=== PATIENT | female | born 1970 | race Hispanic/Latino ===

== ENCOUNTER 2018-06-29 21:45 | Emergency (ER) | payer MEDICAID ==
[2018-06-29 21:46] VITALS: BMI 26.9
[2018-06-29 21:50] VITALS: RESP 17; TEMP 97.2; O2SAT 99
--- NOTE | 2018-06-29 22:44 | ED PDOC ---
HPI: Psych/Substance Abuse Time Seen by Provider: 06/29/18 21:56 Chief Complaint (Nursing): Alcohol Ingestion Chief Complaint (Provider): Alcohol intoxiation ED Caveat: Intoxicated, Uncooperative Modifying Factor(s): Alcohol Additional Complaint(s): 47y/o female brought to ER by [facility] due to alcohol intoxication. Patient was laying on sidewalk with her head on someone else's stoop. She was recently discharged from [facility] at 8pm after being evaluated for alcohol intoxication. Patient is non-cooperative on arrival and is refusing to answer questions. HPI and ROS unavailable due to intoxication. NO reports of trauma. Patient not offering any complaints at this time. Past Medical History Reviewed: Historical Data, Nursing Documentation, Vital Signs Vital Signs: Last Vital Signs Temp 97.2 F L 06/29/18 21:47 Pulse 103 H 06/29/18 21:47 Resp 17 06/29/18 21:47 BP 120/85 06/29/18 21:47 Pulse Ox 99 06/29/18 21:47 - Medical History PMH: Depression - Family History Family History: States: Unknown Family Hx - Home Medications Home Medications: Ambulatory Orders Medication Instructions Recorded Nitrofurantoin Macrocrystal 100 mg PO BID 06/29/18 [Nitrofurantoin] - Allergies Allergies/Adverse Reactions: Allergies Allergy/AdvReac Type Severity Reaction Status Date / Time Unobtainable Allergy Verified 06/29/18 16:37 Review of Systems Review Of Systems: ROS cannot be obtained secondary to pt's inabilty to answer questions. (alcohol intoxication) Physical Exam - Reviewed Nursing Documentation Reviewed: Yes Vital Signs Reviewed: Yes - Physical Exam Comments: GENERAL APPEARANCE: Awake, in no distress, poor hygiene. (+) odor of alcohol SKIN: Warm, dry; (-) cyanosis ENMT: Mucous membranes moist. Airway patent: (-) stridor. NECK: Supple HEART AND CARDIOVASCULAR: (-) irregularity CHEST AND RESPIRATORY: (-) rales, (-) rhonchi, (-) wheezes; breath sounds equal. Respirations even and nonlabored. ABDOMEN: Soft, (-) distention, (-) tenderness, (-) guarding. NEURO AND PSYCH: Mental status as above. Affect: flat. (-) facial asymmetry - ECG O2 Sat by Pulse Oximetry: 99 (RA) Pulse Ox Interpretation: Normal Medical Decision Making Medical Decision Making: Impression: Alcohol intoxication Plan: * Alcohol serum * Glucose POC * Re-evaluation 5 Serum alcohol: 128 Accucheck: 137 0000 Patient sleeping comfortably, no acute distress. 0210 Repeat HR: 92 Patient now awake and oriented x3 in no acute distress. Gait steady in ED without assistance. Lungs clear to auscultation, cardiac RRR, abdomen soft, non- tender, repeat neuro exam shows no focal findings. VSS, stable for discharge. Lab/Diagnostic results d/w the patient in great detail. Diagnosis of alcohol intoxication d/w the patient. Based on history, exam and diagnostic results, plan will be for outpatient follow up. Patient instructed to follow-up with pmd / referral provided / the clinic in 1- 2 days without fail. Return to the emergency room at any time for any new or worsening symptoms. Patient states she fully agrees with and understands discharge instructions. States that she agrees with the plan and disposition. Verbalized and repeated discharge instructions and plan. I have given the patient opportunity to ask any additional questions. Scribe Attestation: Documented by Leta Simmons, acting as a scribe for VINNIE Vaughn. Provider Scribe Attestation: All medical record entries made by the Scribe were at my direction and personally dictated by me. I have reviewed the chart and agree that the record accurately reflects my personal performance of the history, physical exam, medical decision making, and the department course for this patient. I have also personally directed, reviewed, and agree with the discharge instructions and disposition. Disposition - Clinical Impression Clinical Impression: Alcohol abuse with intoxication - Patient ED Disposition Is Patient to be Admitted: No Counseled Patient/Family Regarding: Studies Performed, Diagnosis, Need For Followup - Disposition Referrals: [facility] [Outside] Disposition: Routine/Home Disposition Time: 02:10 Condition: STABLE Additional Instructions: The emergency medical care you received today was directed towards the acute presenting symptoms. If you were prescribed any medication, please fill it and give as directed. It may take several days for your symptoms to resolve. Return to the Emergency Department at any time if symptoms worsen, do not improve, or if any other problems arise. Please contact your doctor in 2 days for re-evaluation and follow up / or call one of the physicians/clinics you have been referred to that are listed on the Patient Visit Information form that is included in your discharge packet. Bring any paperwork you were given at discharge with you along with any medications to your follow up visit. Our treatment cannot replace ongoing medical care by a primary care provider (PCP) outside of the emergency department. Instructions: Alcohol Abuse and Alcoholism (DC), Effects of Alcohol on Your Health Forms: [employer] (Urdu) Print Language: VIETNAMESE - POA Present On Arrival: None Results - Lab Results Lab Results: 06/29/18 06/29/18 22:31 22:22 POC Glucose (mg/dL) 137 H Alcohol, Quantitative 128 H
[2018-06-30 02:19] VITALS: BP 128/77; PULSE 92
== END 2018-06-30 02:19 | disposition home or self-care (01) ==
LOC: H.ER 21:45
DX: F10.129 Alcohol abuse with intoxication, unspecified (principal); F32.9 Major depressive disorder, single episode, unspecified

== ENCOUNTER 2018-07-02 08:36 | Emergency (ER) | payer MEDICAID ==
[2018-07-02 08:41] VITALS: BMI 25.8
[2018-07-02 08:42] VITALS: RESP 20
[2018-07-02 10:57] LABS: BASO # 0.1 K/uL (0.0-0.2); BASO % 0.8 % (0.0-2.0); HEMOGLOBIN 10.3 g/dL (12.0-16.0); LYMPH # 1.9 K/uL (1.0-4.3); LYMPH % 18.9 % (20.0-40.0); MEAN CELL VOLUME 74.2 fl (81.0-99.0); MEAN CORPUSCULAR HEMOGLOBIN 22.8 pg (27.0-31.0); MEAN CORPUSCULAR HGB CONC 30.8 g/dL (33.0-37.0); MEAN PLATELET VOLUME 8.7 fl (7.2-11.7); MONO # 0.5 K/uL (0.0-0.8); MONO % 4.6 % (0.0-10.0); NEUT # 7.6 K/uL (1.8-7.0); NEUT % 75.7 % (50.0-75.0); NRBC % 0.1 % (0.0-0.0); RBC 4.51 Mil/uL (3.80-5.20); RED CELL DISTRIBUTION WIDTH 26.2 % (11.5-14.5); WHITE BLOOD COUNT 10.1 K/uL (4.8-10.8)
[2018-07-02 11:02] LABS: BLOOD UREA NITROGEN 12 mg/dl (7-17); CALCIUM 8.1 mg/dL (8.4-10.2); GFR NON-AFRICAN AMERICAN > 60
[2018-07-02 11:03] LABS: ACETAMINOPHEN < 10.0 ug/ml (10.0-30.0)
[2018-07-02 11:05] LABS: SQUAMOUS EPITHIAL 1 /hpf (0-5); URINE BACTERIA RARE (<OCC); URINE BILIRUBIN NEGATIVE (NEGATIVE); URINE BLOOD SMALL (NEGATIVE); URINE CLARITY CLEAR (Clear); URINE COLOR STRAW (YELLOW); URINE GLUCOSE (UA) NEG (Normal); URINE LEUKOCYTE ESTERASE NEG Leu/uL (Negative); URINE PROTEIN NEGATIVE (NEGATIVE); URINE UROBILINOGEN 0.2-1.0 mg/dL (0.2-1.0)
--- NOTE | 2018-07-02 11:10 | ED PDOC ---
HPI: Psych/Substance Abuse Time Seen by Provider: 07/02/18 08:54 Chief Complaint (Nursing): Psychiatric Evaluation Chief Complaint (Provider): Psychiatric Evaluation History Per: Patient, EMS History/Exam Limitations: no limitations Onset/Duration Of Symptoms: Hrs Current Symptoms Are (Timing): Still Present Additional Complaint(s): Gisele Villegas is a 47 year old female with a past medical history of depression who is presenting to the ED after friends called 911 s/p patient chugging a pint of vodka. Friends were concerned as patient apparently tried to stab herself with a knife. On evaluation, she admits that she is drunk today and admits that she is aware that her friends were concerned. Patient states that she denies any suicidal ideation or intention to harm herself. She is sleepy but easily arousable. Patient denies any pain, nausea, vomiting, or other discomfort. PMD: none provided Past Medical History Reviewed: Historical Data, Nursing Documentation, Vital Signs Vital Signs: Last Vital Signs Temp 98.7 F 07/02/18 08:42 Pulse 118 H 07/02/18 08:42 Resp 20 07/02/18 08:42 BP 121/84 07/02/18 08:42 Pulse Ox 98 07/02/18 08:44 - Medical History PMH: Depression Denies: Diabetes, Hepatitis, HIV, HTN, Seizures, Sexually Transmitted Disease - Surgical History Surgical History: No Surg Hx - Family History Family History: States: Unknown Family Hx - Social History Current smoker - smoking cessation education provided: Yes Alcohol: Social Drugs: Denies - Immunization History Hx Tetanus Toxoid Vaccination: No Hx Influenza Vaccination: No (Unobtainable) Hx Pneumococcal Vaccination: No (Unobtainable) - Allergies Allergies/Adverse Reactions: Allergies Allergy/AdvReac Type Severity Reaction Status Date / Time No Known Allergies Allergy Verified 07/02/18 09:07 Review of Systems ROS Statement: Except As Marked, All Systems Reviewed And Found Negative Gastrointestinal: Negative for: Nausea, Vomiting Psych: Negative for: Suicidal ideation (patient denies ) Physical Exam - Reviewed Nursing Documentation Reviewed: Yes Vital Signs Reviewed: Yes - Physical Exam Appears: Positive for: Non-toxic, No Acute Distress (slurred speech, lethargic) Head Exam: Positive for: ATRAUMATIC, NORMAL INSPECTION, NORMOCEPHALIC Skin: Positive for: Normal Color, Warm, Dry Eye Exam: Positive for: EOMI, Normal appearance, PERRL ENT: Positive for: Normal ENT Inspection Neck: Positive for: Normal, Painless ROM, Supple Cardiovascular/Chest: Positive for: Regular Rate, Rhythm. Negative for: Murmur Respiratory: Positive for: Normal Breath Sounds. Negative for: Respiratory Distress Gastrointestinal/Abdominal: Positive for: Normal Exam, Soft. Negative for: Tenderness Back: Positive for: Normal Inspection. Negative for: L CVA Tenderness, R CVA Tenderness, Vertebral Tenderness Extremity: Positive for: Normal ROM. Negative for: Calf Tenderness (no pain on calf squeeze), Deformity, Swelling Neurologic/Psych: Positive for: Alert, Oriented. Negative for: Motor/Sensory Deficits - Laboratory Results Result Diagrams: 07/02/18 10:30 07/02/18 10:30 - ECG O2 Sat by Pulse Oximetry: 98 (RA) Pulse Ox Interpretation: Normal Medical Decision Making Medical Decision Making: Time: 9:10 A/P: acute intoxication with possible suicidal ideation --Labs ordered including ETOH, drug level, salicylate, and acetaminophen --Crisis evaluation --Reassess when clinically sober 19:00 Transferred care over to Dr. Conklin pending [facility] evaluation. Scribe Attestation: Documented by Traci Rodriguez, acting as a scribe for Radha Jaeger MD. Provider Scribe Attestation: All medical record entries made by the Scribe were at my direction and personally dictated by me. I have reviewed the chart and agree that the record accurately reflects my personal performance of the history, physical exam, medical decision making, and the department course for this patient. I have also personally directed, reviewed, and agree with the discharge instructions and disposition. 1500 Crisis team and RN spoke with family members who have expressed serious concerns of pt having strange and dangerous behavior to herself and others. Pt with tachycardia. Given 2 L of IV fluids and Valium PO for prevention of ETOH withdrawl. ONce medically cleared, pt to be admitted for involuntary psych. 1600 Pt with improved vitals. Pt comfortable and denies pain or discomfort. Workup o therwise normal. Pt medically optimized for psychiatric evaluation. Recommend Librium PRN for signs of alcohol withdrawal. Crisis team aware of pt's medical clearance. 1999 Pt signed out to Dr. Conklin pending [facility] psychiatric evaluation for possible involuntary admission. Disposition - Clinical Impression Clinical Impression: Alcohol intoxication, Alcohol use disorder - Disposition Referrals: Alcoholics Anonymous [Outside] [facility] [Outside] Disposition: Transfer of Care (Dr. Conklin) Disposition Time: 20:00 Condition: STABLE Instructions: Alcohol Abuse and Alcoholism (DC) Forms: [employer] (Danish)
[2018-07-02 11:14] LABS: BARBITURATES, UR NEGATIVE (NEGATIVE); BENZODIAZEPINES, UR POSITIVE (NEGATIVE); OPIATES, UR NEGATIVE (NEGATIVE); PHENCYCLIDINE, UR NEGATIVE (NEGATIVE)
[2018-07-02] MEDS ORDERED: Sodium Chloride 0.9% 1,000 ML IV STA ×2 (14:17)
[2018-07-02] MEDS ORDERED: diaZEpam 10 mg/2 ml Inj IVP STA (14:49)
--- NOTE | 2018-07-02 20:26 | CARD ---
APPROVED REPORT Date of service: 07/02/2018 EKG Measurement Heart [id number] <Conclusion> Sinus tachycardia Otherwise normal ECG
--- NOTE | 2018-07-02 21:45 | ED PDOC ---
- Laboratory Results Result Diagrams: 07/02/18 10:30 07/02/18 10:30 - ECG O2 Sat by Pulse Oximetry: 98 (RA) Pulse Ox Interpretation: Normal Medical Decision Making Medical Decision MakinPM Patient endorsed to me by Dr. Jaeger pending [facility] eval 9PM Patient was cleared by Dr. Arthur for [facility] [place], stating patient is not commitable Dr. Granados clears patient for discharge with diagnosis of alcohol use disorder Patient is awake, alert, steady gait Disposition - Clinical Impression Clinical Impression: Alcohol intoxication, Alcohol use disorder - POA Present On Arrival: None - Disposition Referrals: Alcoholics Anonymous [Outside] [facility] [Outside] Disposition: Routine/Home Disposition Time: 21:45 Condition: STABLE Instructions: Alcohol Abuse and Alcoholism (DC) Forms: [employer] (Finnish)
[2018-07-03 01:09] VITALS: BP 124/74; PULSE 81; TEMP 98.2; O2SAT 99
[2018-07-03 09:34] LABS: SALICYLATE < 1.0 mg/dl
== END 2018-07-02 21:50 | disposition home or self-care (01) ==
LOC: H.ER 08:36
DX: F10.129 Alcohol abuse with intoxication, unspecified (principal); Y90.6 Blood alcohol level of 120-199 mg/100 ml; F17.200 Nicotine dependence, unspecified, uncomplicated; Z86.59 Personal history of other mental and behavioral disorders
CPT/HCPCS: 80048; 80320; 80324; 80329; 80345; 80346; 80349; 80353; 80358; 80361; 81003; 81025; 83992; 85025; 93005; 96360; 96361; 96372; 99285; J1630; J2060; J7030

== ENCOUNTER 2018-07-07 11:03 | Inpatient (IN) | payer MEDICAID ==
[2018-07-07 11:03] VITALS: BMI 25.8
--- NOTE | 2018-07-07 12:23 | ED PDOC ---
HPI: Psych/Substance Abuse Time Seen by Provider: 07/07/18 11:36 Chief Complaint (Nursing): Alcohol Ingestion Chief Complaint (Provider): linus been drinking ED Caveat: Intoxicated History Per: Patient History/Exam Limitations: no limitations Involuntary Hold By: Emergency Physician Additional Complaint(s): 47yo female arrives via EMS per report drinking alcohol and rubbing alcohol at home. patient admits to depression, denies suicidal thoughts. Denies falls, current pain or trauma. Past Medical History Reviewed: Historical Data, Nursing Documentation, Vital Signs Vital Signs: Last Vital Signs Temp 97.0 F L 07/07/18 11:23 Pulse 98 H 07/07/18 11:23 Resp 18 07/07/18 11:23 BP 125/85 07/07/18 11:23 Pulse Ox 99 07/07/18 11:23 - Medical History PMH: Depression Denies: Diabetes, Hepatitis, HIV, HTN, Seizures, Sexually Transmitted Disease - Family History Family History: States: Unknown Family Hx - Living Arrangements Living Arrangements: With Family - Social History Alcohol: > 2 Drinks/Day Drugs: Denies - Immunization History Hx Tetanus Toxoid Vaccination: No Hx Influenza Vaccination: No (Unobtainable) Hx Pneumococcal Vaccination: No (Unobtainable) - Allergies Allergies/Adverse Reactions: Allergies Allergy/AdvReac Type Severity Reaction Status Date / Time No Known Allergies Allergy Verified 07/02/18 09:07 Review of Systems Review Of Systems: ROS cannot be obtained secondary to pt's inabilty to answer questions. Physical Exam - Reviewed Nursing Documentation Reviewed: Yes Vital Signs Reviewed: Yes - Physical Exam Appears: Positive for: Non-toxic (intoxicated) Head Exam: Positive for: ATRAUMATIC, NORMAL INSPECTION, NORMOCEPHALIC Skin: Positive for: Normal Color, Warm, DRY Eye Exam: Positive for: EOMI, Normal appearance, PERRL ENT: Positive for: Normal ENT Inspection Neck: Positive for: Normal, Painless ROM Cardiovascular/Chest: Positive for: Regular Rate, Rhythm Respiratory: Positive for: CNT, Normal Breath Sounds Pulses-Radial (L): 3+/4+ Pulses-Radial (R): 3+/4+ Gastrointestinal/Abdominal: Positive for: Soft. Negative for: Tenderness Back: Positive for: Normal Inspection Extremity: Positive for: Normal ROM Neurologic/Psych: Positive for: Alert, soft sugar cutter II-XII, Mood/Affect (anxious intoxicated appearing), Other. Negative for: Motor/Sensory Deficits, Aphasia - Laboratory Results Result Diagrams: 07/07/18 12:20 07/07/18 12:20 - ECG O2 Sat by Pulse Oximetry: 99 Medical Decision Making Medical Decision Making: patient physically and verbally agitated in ED, attempting to strike staff, required relief of agitation with medication and physical restraints for staff and patient safety. labs reviewed, elevated etoh 368 monitored throughout the day with frequent re-evaluation. approx 1800 required librium for mild withdrawal symptoms. RN discussed w poison control center, supportive care recommended. medically stable for crisis evaluation 740p admit psychiatry per reed worker, dr robb pizarro-trupti 8p denies headache, nausea or hallucinatory thoughts. HR 98. Speech clear. She denies drinking everyday, has been binging last several days. Denies hx withdrawal seizures. CIWA score 10. remains stable for psych admit. Disposition - Clinical Impression Clinical Impression: Alcohol abuse, Depressed - Patient ED Disposition Is Patient to be Admitted: Yes Counseled Patient/Family Regarding: Studies Performed - Disposition Disposition Time: 20:07 Condition: FAIR Instructions: Depression Forms: [employer] (Cook Islander)
[2018-07-07 12:30] LABS: BASO # 0.1 K/uL (0.0-0.2); BASO % 0.7 % (0.0-2.0); EOS % 0.2 % (0.0-4.0); HEMOGLOBIN 10.9 g/dL (12.0-16.0); LYMPH # 1.9 K/uL (1.0-4.3); LYMPH % 19.8 % (20.0-40.0); MEAN CELL VOLUME 74.7 fl (81.0-99.0); MEAN CORPUSCULAR HEMOGLOBIN 22.5 pg (27.0-31.0); MEAN CORPUSCULAR HGB CONC 30.2 g/dL (33.0-37.0); MEAN PLATELET VOLUME 8.4 fl (7.2-11.7); MONO # 0.3 K/uL (0.0-0.8); MONO % 3.4 % (0.0-10.0); NEUT # 7.4 K/uL (1.8-7.0); NEUT % 75.9 % (50.0-75.0); RBC 4.83 Mil/uL (3.80-5.20); RED CELL DISTRIBUTION WIDTH 26.1 % (11.5-14.5); WHITE BLOOD COUNT 9.7 K/uL (4.8-10.8)
[2018-07-07 12:38] LABS: INR 0.9
[2018-07-07 12:39] LABS: SQUAMOUS EPITHIAL < 1 /hpf (0-5); URINE BACTERIA RARE (<OCC); URINE BILIRUBIN NEGATIVE (NEGATIVE); URINE BLOOD SMALL (NEGATIVE); URINE CLARITY CLEAR (Clear); URINE COLOR COLORLESS (YELLOW); URINE GLUCOSE (UA) NEG (Normal); URINE LEUKOCYTE ESTERASE NEG Leu/uL (Negative); URINE PROTEIN NEGATIVE (NEGATIVE); URINE UROBILINOGEN 0.2-1.0 mg/dL (0.2-1.0)
[2018-07-07 12:41] LABS: PARTIAL THROMBOPLASTIN TIME 23.9 Seconds (25.6-37.1)
[2018-07-07 12:58] LABS: ALB/GLOB RATIO 1.3 (1.0-2.1); ALT/SGPT 37 U/L (9-52); AST/SGOT 46 U/L (14-36)
[2018-07-07 13:00] LABS: BLOOD UREA NITROGEN 11 mg/dl (7-17); GFR NON-AFRICAN AMERICAN > 60; LIPASE 215 U/L (23-300)
[2018-07-07 13:17] LABS: ACETAMINOPHEN < 10.0 ug/ml (10.0-30.0); SALICYLATE < 1.0 mg/dl
[2018-07-07] MEDS ORDERED: Sodium Chloride 0.9% 1,000 ML IV STA (14:11)
[2018-07-07 14:44] VITALS: O2SAT 99
--- NOTE | 2018-07-07 15:20 | RAD ---
Date of service: 07/07/2018 HISTORY: etoh abuse COMPARISON: 09/12/2012. FINDINGS: LUNGS: No active pulmonary disease. PLEURA: No significant pleural effusion identified, no pneumothorax apparent. CARDIOVASCULAR: No atherosclerotic calcification present Normal. OSSEOUS STRUCTURES: No significant abnormalities. VISUALIZED UPPER ABDOMEN: Normal. OTHER FINDINGS: None. IMPRESSION: No active disease. No significant interval change compared to the prior examination(s).
--- NOTE | 2018-07-07 17:18 | CARD ---
APPROVED REPORT Date of service: 07/07/2018 EKG Measurement Heart [id number] <Conclusion> Normal sinus rhythm Prolonged QT Abnormal ECG
[2018-07-07] MEDS ORDERED: DiphenhydrAMINE 50 mg/ml Inj IM PRN (22:43)
[2018-07-07] MEDS ORDERED: Alum-Mag Hydrox-Simethicone Susp (30 mL) PO PRN (22:43)
[2018-07-07] MEDS ORDERED: Magnesium Hydroxide Susp 30 ml UD PO PRN (22:43)
[2018-07-07 23:00] LABS: BENZODIAZEPINES, UR NEGATIVE (NEGATIVE)
[2018-07-07 23:03] LABS: BARBITURATES, UR NEGATIVE (NEGATIVE); OPIATES, UR NEGATIVE (NEGATIVE); PHENCYCLIDINE, UR NEGATIVE (NEGATIVE)
--- NOTE | 2018-07-07 23:05 | PCM.BM ---
<Marcello Bunn - Last Filed: 07/07/18 23:03> Treatment Plan Problems - Problems identified on initial assessmt Hopelessness/Helplessness Date Initiated: 07/07/18 Time Initiated: 23:03 Assessment reference: NA Status: Active Altered Sleep Patterns Date Initiated: 07/07/18 Time Initiated: 23:03 Assessment reference: NA Status: Active Treatment assets and liabiliti Patient Assests: cooperative, ADL independent, negotiates basic needs, cognitively intact Patient Liabilities: financial problems, poor support system, relationship conflicts, substance abuse (Homelessness, Hx Psych Tx) - Milieu Protocol Maintain good personal hygiene: daily Encourage regular showers, daily Remind patient to perform daily oral care, daily Assist patient to perform ADL's Conduct patient checks and document Observation sheet: Q15 minutes Maintain personal safety: every shift Educate patient to report safety concerns to staff, every shift Monitor environment for contraband/sharps Medication safety: Monitor for expected outcome, potential side effects: every shift, Assess barriers to learning: every shift, Assess readiness for medication education: every shift <Sharda Herring - Last Filed: 07/09/18 17:03> Treatment assets and liabiliti Patient Liabilities: live alone (pt. currently homeless), other (alcohol abuse, severe) Family Contact Family involvement: Family/SO is involved Family contact: Family has been contacted by patient, Patient declines to allow family contact at present Family contact comment: Patient has declined to provide continuity writer to contact family despite encouragement/engagement. Fig [employer] Machine Operator to continue to to meet with patient and emphasize importance of involvement of pts primary support to assist with appropriate discharge planning. - Goals for Treatment Patient goals for treatment: Patient to continue stabilization on 3NP through medication management and group/supportive therapy to address sxs of depression, eliminate suicidal ideations and emphasizing severity of effects of ETOH abuse. Patient to be encouraged to attend groups regularly to promote self-awareness, sobriety, and improve insight, compliance, coping skills and self-esteem. Patient to be provided with referral for appropriate level of aftercare to reduce risk of future hospitalizations and ensure safety/maximum functioning in the community. Discharge/Continuing Care - Education Needs Education Needs: Patient Medication, Patient Diagnosis/Disease Process, Patient Coping Skills, Patient Anger Management skills, Patient Community resources, Patient Aftercare Safety Plan - Discharge Discharge Criteria: Tolerates medication w/o severe side effects, Free of Suicidal thoughts, Free of agitation, Normal sleep pattern, No longer exhibiting s/s of withdrawal Discharge to:: Nursing Home, Other (Inpatient Rehab vs. [facility]) - Treatment Team Participation Patient/Family/SO Statement: 07/09/18 17:05 Patient attended tx team this morning to discuss progress on 3NP and tx goal. Pt. presented as depression and anxious as exhibited by poor energy/motivation, feelings of hopelessness/helplessness and lability in mood. Pt. reported passive suicidal ideations without plan or intent and was able to contract for safety on 3NP. Pt. expressed frustration regarding sxs of withdrawal. Pt. reported restlessness, physical pain/discomfort and inability to sleep. Pt. demanded that Ativan be increased and Xanax added to medication regimen. Validation and emotional support provided. Tx teams commitment to aiding pt. through a safe withdrawal reiterated. Increase in Seroquel suggested. Extensive psychoeducation regarding risks of xanax use and higher dosages of current medications provided. Pt. became agitated and verbally threatening towards staff. Pt. slammed head on table, getting up abruptly and yelling I want to be transferred to [facility] now. Pt. not receptive to feedback. Pt. began to posture towards staff and required verbal de-escalation and was escorted out of tx team room but RN. Discussed with Family/SO: No Was Patient/Family/SO present at Treatment Team Meeting: Yes <Carmen Hyman - Last Filed: 07/12/18 08:50> Treatment Plan Problems - Problems identified on initial assessmt Hopelessness/Helplessness Date Initiated: 07/07/18 Time Initiated: 23:03 Assessment reference: NA Status: Active Altered Sleep Patterns Date Initiated: 07/07/18 Time Initiated: 23:03 Assessment reference: NA Status: Active Substance Abuse Date Initiated: 07/09/18 Time Initiated: 14:21 Assessment reference: NA Status: Active - Diagnosis (1) Alcohol abuse Status: Acute Interventions: motivational therapy 07/12/18 08:50
[2018-07-08 07:08] LABS: T4 5.03 ug/dl (5.5-11.0)
[2018-07-08] MEDS: Multivitamin With Minerals Tab PO SCH (10:55)
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
--- NOTE | 2018-07-08 13:29 | CP.PCM.CON ---
History of Present Illness - History of Present Illness History of Present Illness: 47 yo female with history of Bipolar DO and ETOH abuse admitted to Psyche unit because of suicidal ideation. Review of Systems - Review of Systems All systems: reviewed and no additional remarkable complaints except (aside from those mentioned above, 12 point system review were negative by me) Past Patient History - Tetanus Immunizations Tetanus Immunization: Unknown - Past Social History Smoking Status: Heavy Smoker > 10 Cigarettes Daily Chewing Tobacco Use: No Cigar Use: No Alcohol: > 2 Drinks/Day Drugs: Denies - CARDIAC Hx Cardiac Disorders: No Hx Hypertension: No - PULMONARY Hx Tuberculosis: No - NEUROLOGICAL HX Cerebrovascular Accident: No Hx Seizures: No - HEMATOLOGICAL/ONCOLOGICAL Hx Cancer: No Hx Human Immunodeficiency Virus (HIV): No - GENITOURINARY/GYNECOLOGICAL Hx Sexually Transmitted Disorders: No - PSYCHIATRIC Hx Depression: Yes Hx Substance Use: No - SURGICAL HISTORY Hx Surgeries: No Hx Gastric Bypass Surgery: Yes Other/Comment: Gastric by pass - ANESTHESIA Hx Anesthesia: Yes Hx Anesthesia Reactions: No Hx Malignant Hyperthermia: No Has any member of the family had a problem w/ anesthesia?: No Meds Allergies/Adverse Reactions: Allergies Allergy/AdvReac Type Severity Reaction Status Date / Time No Known Allergies Allergy Verified 07/02/18 09:07 - Medications Medications: Current Medications Acetaminophen (Tylenol 325mg Tab) 650 mg PO Q4 PRN PRN Reason: pain level 4-7 Al Hydrox/Mg Hydrox/Simethicone (Maalox Plus 30 Ml) 30 ml PO Q4 PRN PRN Reason: Dyspepsia Chlordiazepoxide (Librium) 50 mg PO Q8 [facility] Last Admin: 07/08/18 10:55 Dose: 50 mg Diphenhydramine HCl (Benadryl) 50 mg IM Q6 PRN PRN Reason: Extrapyramidal S/S Unable PO Diphenhydramine HCl (Benadryl) 50 mg PO Q6 PRN PRN Reason: Extrapyramidal Symptoms Diphenhydramine HCl (Benadryl) 50 mg PO HS PRN PRN Reason: Sleep Folic Acid (Folic Acid) 1 mg PO DAILY [facility] Last Admin: 07/08/18 10:55 Dose: 1 mg Gabapentin (Neurontin) 100 mg PO TID BRIAN Haloperidol (Haldol) 5 mg PO Q4 PRN PRN Reason: Agitation Haloperidol Lactate (Haldol) 5 mg IM Q4 PRN PRN Reason: Agitation, Unable to Take PO Lorazepam (Ativan) 1 mg IM Q8H PRN PRN Reason: Anxiety/Agitation,Unable PO Lorazepam (Ativan) 2 mg PO Q6 PRN PRN Reason: Anxiety Magnesium Hydroxide (Milk Of Magnesia) 30 ml PO HS PRN PRN Reason: Constipation Multivitamins/Minerals (Therapeutic-M Tab) 1 tab PO DAILY [facility] Last Admin: 07/08/18 10:55 Dose: 1 tab Quetiapine Fumarate (Seroquel) 100 mg PO HS [facility] Thiamine HCl (Vitamin B1 Tab) 100 mg PO DAILY [facility] Last Admin: 07/08/18 10:55 Dose: 100 mg Physical Exam - Constitutional Appears: No Acute Distress - Head Exam Head Exam: ATRAUMATIC - Eye Exam Eye Exam: absent: Scleral icterus - ENT Exam ENT Exam: Mucous Membranes Moist - Neck Exam Neck exam: Negative for: Meningismus - Respiratory Exam Respiratory Exam: absent: Rales, Rhonchi, Wheezes, Respiratory Distress - Cardiovascular Exam Cardiovascular Exam: REGULAR RHYTHM, +S1, +S2 - GI/Abdominal Exam GI & Abdominal Exam: Soft. absent: Tenderness - Rectal Exam Rectal Exam: Deferred - Extremities Exam Extremities exam: Negative for: pedal edema - Neurological Exam Neurological exam: Alert, Oriented x3 - Psychiatric Exam Psychiatric exam: Normal Affect - Skin Skin Exam: Dry, Intact Results - Vital Signs Recent Vital Signs: Last Vital Signs Temp 98.2 F 07/07/18 22:40 Pulse 100 H 07/07/18 22:58 Resp 20 07/07/18 22:58 BP 138/85 07/07/18 22:40 Pulse Ox 99 07/07/18 20:17 - Labs Result Diagrams: 07/07/18 12:20 07/07/18 12:20 Labs: Laboratory Results - last 24 hr 07/07/18 07/07/18 07/07/18 12:20 21:24 22:35 PT 10.0 POC Glucose (mg/dL) 125 H Hemoglobin A1c Triglycerides Cholesterol LDL Cholesterol Direct HDL Cholesterol Thyroxine (T4) TSH 3rd Generation Urine Opiates Screen Negative Urine Methadone Screen Negative Ur Barbiturates Screen Negative Ur Phencyclidine Scrn Negative Ur Amphetamines Screen Negative U Benzodiazepines Scrn Negative U Oth Cocaine Metabols Negative U Cannabinoids Screen Negative 07/08/18 07/08/18 06:25 06:25 PT POC Glucose (mg/dL) Hemoglobin A1c 5.7 Triglycerides 45 Cholesterol 157 LDL Cholesterol Direct 57 HDL Cholesterol 108 H Thyroxine (T4) 5.03 L TSH 3rd Generation 1.29 Urine Opiates Screen Urine Methadone Screen Ur Barbiturates Screen Ur Phencyclidine Scrn Ur Amphetamines Screen U Benzodiazepines Scrn U Oth Cocaine Metabols U Cannabinoids Screen Assessment & Plan (1) Depressed Status: Acute Comment: psyche is managing (2) Alcohol abuse Status: Acute Comment: psyche is managing
[2018-07-09] MEDS: Multivitamin With Minerals Tab PO SCH (08:06)
--- NOTE | 2018-07-09 14:21 | PCM.BM ---
Treatment Plan Problems - Problems identified on initial assessmt Hopelessness/Helplessness Date Initiated: 07/07/18 Time Initiated: 23:03 Assessment reference: NA Status: Active Altered Sleep Patterns Date Initiated: 07/07/18 Time Initiated: 23:03 Assessment reference: NA Status: Active Substance Abuse Date Initiated: 07/09/18 Time Initiated: 14:21 Assessment reference: NA Status: Active Treatment assets and liabiliti Patient Assests: cooperative, ADL independent, negotiates basic needs, cognitively intact Patient Liabilities: financial problems, poor support system, relationship conflicts, substance abuse (Homelessness, Hx Psych Tx) - Milieu Protocol Maintain good personal hygiene: daily Encourage regular showers, daily Remind patient to perform daily oral care, daily Assist patient to perform ADL's Conduct patient checks and document Observation sheet: Q15 minutes Maintain personal safety: every shift Educate patient to report safety concerns to staff, every shift Monitor environment for contraband/sharps Medication safety: Monitor for expected outcome, potential side effects: every shift, Assess barriers to learning: every shift, Assess readiness for medication education: every shift Milieu Narrative: start pt on librium protocol / pt will be monitored for symptoms and signs of alcohol withdrawal start seroquel 100mg qhs , increase gradually for mood stabilization start neurontin 100 mg tid for anxiety motivational group and supportive therapy internal medicine consult referral to rehab Discharge/Continuing Care - Treatment Team Participation Patient/Family/SO Statement: start pt on librium protocol / pt will be monitored for symptoms and signs of alcohol withdrawal start seroquel 100mg qhs , increase gradually for mood stabilization start neurontin 100 mg tid for anxiety motivational group and supportive therapy internal medicine consult referral to rehab
--- NOTE | 2018-07-09 16:15 | PCM.PYCHPN ---
Psychiatric Progress Note - Psychiatric Progress Note Patient seen today, length of contact: pt evaluated discussed with team chart reviewed Patient Chief Complaint: I need more medications, I keep scratching myself Problems Identified/Issues Discussed: pt evaluated with treatment team, presenting with irritable, angry mood , labile affect, speech loud, verbally threatening and abusive to staff requesting more benzodiazepines, focusing on getting more medications, psychoeducation provided, discussed with pt the need to practice coping skills with anxiety other than medications and self harm, pt vitals noted to be stable,discussed with pt that librium will be gradually tapered down, pt continues to be depressed with passive suicidal thoughts, stating she feels her life has no meaning, CBT and motivational therapy provided pt denied active thoughts of self harm on the unit, encouraged to attend groups and to participate in treatment Medical Problems: pt reported first hospitalization at age 41, since then has at least five h ospitalizations one inpatient rehab at [facility], non compliant with treatment or follow up DSM 5 Symptoms Update: bipolar i disorder mixed alcohol dependence Medication Change: Yes (incrase seroquel) Medical Record Reviewed: Yes Mental Status Examination - Cognitive Function Orientation: Person, Place Memory: Intact Attention: WNL Concentration: Poor Association: WNL Fund of Knowledge: Poor Decription of patient's judgement and insights: poor insight and judgment - Mood Mood: Depressed, Anxious Additional comments: angry, irritable - Affect Affect: Constricted, Depressed - Speech Speech: Loud - Formal Thought Process Formal Thought Process: Circumstantial - Suicidal Ideation Suicidal Ideation: No - Homicidal Ideation Homicidal Ideation: No Goal/Treatment Plan - Goal/Treatment Plan Need for Continued Stay: Severe depression anxiety, Discharge may exacerbated symptoms Progress Toward Problem(s) and Goals/Treatment Plan: continue librium protocol / pt will be monitored for symptoms and signs of alcohol withdrawal increase seroquel 100mg bid and 200mg qhs , increase gradually for mood stabilization increase neurontin 300mg tid for anxiety start wellbutrin sr 150mg daily motivational group and supportive therapy internal medicine consult referral to rehab
[2018-07-10] MEDS: buPROPion SR 150 MG TABLET PO SCH (09:37)
[2018-07-10] MEDS: Multivitamin With Minerals Tab PO SCH (09:39)
--- NOTE | 2018-07-10 14:12 | PCM.PYCHPN ---
Psychiatric Progress Note - Psychiatric Progress Note Patient seen today, length of contact: pt evaluated discussed with team chart reviewed Patient Chief Complaint: I feel depressed and I start drinking Problems Identified/Issues Discussed: pt evaluated , continues to be anxious, irritable and labile , dysphoric with unprovaked episodes of anger and crying spells continues to request more benzodiazepines, motivational therapy provided , advised patient about the addictive nature of benzos, discussed the gradual taper of librium , also educated pt importance of having a sponsor and being in a rehab program on discharge, discussed gradual increase in seroquel , advised pt to attend groups pt denied active thoughts of self harm on the unit, denied perceptual disturbances Medical Problems: pt reported first hospitalization at age 41, since then has at least five hospitalizations one inpatient rehab at [facility], non compliant with treatment or follow up DSM 5 Symptoms Update: bipolar disorder alcohol dependence benzodiazepine dependence Medication Change: Yes (decrease librium) Medical Record Reviewed: Yes Mental Status Examination - Cognitive Function Orientation: Person, Place Memory: Intact Attention: WNL Concentration: Poor Association: WNL Fund of Knowledge: Poor Decription of patient's judgement and insights: poor insight and judgment - Mood Mood: Depressed, Anxious - Affect Affect: Constricted, Depressed - Speech Speech: Loud - Formal Thought Process Formal Thought Process: Circumstantial - Suicidal Ideation Suicidal Ideation: No - Homicidal Ideation Homicidal Ideation: No Goal/Treatment Plan - Goal/Treatment Plan Need for Continued Stay: Severe depression anxiety, Discharge may exacerbated symptoms Progress Toward Problem(s) and Goals/Treatment Plan: decrease librium protocol to 25mg q6/ pt will be monitored for symptoms and signs of alcohol withdrawal seroquel 100mg bid and 200mg qhs , increase gradually for mood stabilization neurontin 300mg tid for anxiety wellbutrin sr 150mg daily motivational group and supportive therapy referral to rehab
--- NOTE | 2018-07-11 09:39 | PCM.PYCHPN ---
Psychiatric Progress Note - Psychiatric Progress Note Patient seen today, length of contact: pt evaluated discussed with team chart reviewed Patient Chief Complaint: I need to get out of here Problems Identified/Issues Discussed: pt evaluated , continues to be labile, irritable, , dysphoric with unprovoked episodes of anger and crying spells continues to request more benzodiazepines, pt has no insight into illness, requesting to be discharged, signed 48 hour n otice, pt continues to be high risk for relapse with possible overdose Medical Problems: pt reported first hospitalization at age 41, since then has at least five hospitalizations one inpatient rehab at [facility], non compliant with treatment or follow up DSM 5 Symptoms Update: bipolar disorder alcohol use disorder benzodiazepine disorder Medication Change: Yes (decrease librium) Medical Record Reviewed: Yes Mental Status Examination - Cognitive Function Orientation: Person, Place Memory: Intact Attention: WNL Concentration: Poor Association: WNL Fund of Knowledge: Poor Decription of patient's judgement and insights: poor insight and judgment - Mood Mood: Depressed, Anxious - Affect Affect: Constricted, Depressed Additional comments: labile - Speech Speech: Loud - Formal Thought Process Formal Thought Process: Circumstantial - Suicidal Ideation Suicidal Ideation: No - Homicidal Ideation Homicidal Ideation: No Goal/Treatment Plan - Goal/Treatment Plan Need for Continued Stay: Severe depression anxiety, Discharge may exacerbated symptoms Progress Toward Problem(s) and Goals/Treatment Plan: pt signed 48 hour notice requesting to be discharged, pt continues to be high risk for relapse with possible overdosed pt will be referred for screening for involuntary admission for need of continuity of care and referral to inpatient rehab decrease librium protocol to 10mg q8/ pt will be monitored for symptoms and signs of alcohol withdrawal seroquel 100mg bid and 200mg qhs , increase gradually for mood stabilization neurontin 300mg tid for anxiety wellbutrin sr 150mg daily motivational group and supportive therapy referral to rehab
[2018-07-11] MEDS: buPROPion SR 150 MG TABLET PO SCH (10:55)
[2018-07-11] MEDS: Multivitamin With Minerals Tab PO SCH (11:46)
[2018-07-12] MEDS: buPROPion SR 150 MG TABLET PO SCH (09:01)
[2018-07-12] MEDS: Multivitamin With Minerals Tab PO SCH (09:03)
[2018-07-12 09:46] VITALS: BP 113/83; PULSE 81; RESP 18; TEMP 97.3
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
== END 2018-07-12 09:47 | disposition left against medical advice (07) | DRG 753 ==
LOC: H.ER 11:03 → H.ERHOLD 20:17 → H.PSYCH 22:36
PROVIDERS: ADMIT Psychiatry & Neurology Psychiatry; ATTEND Psychiatry & Neurology Psychiatry
PROC: GZ51ZZZ Individual Psychotherapy, Behavioral (ICD-10-PCS; principal; 2018-07-07)
DX: F31.60 Bipolar disorder, current episode mixed, unspecified (principal); F13.20 Sedative, hypnotic or anxiolytic dependence, uncomplicated; R45.851 Suicidal ideations; F10.24 Alcohol dependence with alcohol-induced mood disorder; F41.9 Anxiety disorder, unspecified; T50.902A Poisoning by unspecified drugs, medicaments and biological substances, intentional self-harm, initial encounter; T51.0X1A Toxic effect of ethanol, accidental (unintentional), initial encounter; T51.92XA Toxic effect of unspecified alcohol, intentional self-harm, initial encounter; Y90.8 Blood alcohol level of 240 mg/100 ml or more; Z78.1 Physical restraint status; F17.210 Nicotine dependence, cigarettes, uncomplicated; Z91.14 Patient's other noncompliance with medication regimen; Z91.19 Patient's noncompliance with other medical treatment and regimen; Z98.84 Bariatric surgery status